=== PATIENT | female | born 1930 | race Caucasian/White ===

== ENCOUNTER 2018-03-30 18:08 | Inpatient (IN) | payer MEDICARE, OTHER ==
[~2018-03-30] VITALS: Ht 152.4 cm; Wt 44.0 kg
[~2018-03-30 18:08] MED LIST: ARMOUR THYROID60 MG PO; FLONASE INH; MAXZIDE 37.5 M1 EACH PO; MICARDIS40 MG PO; ZINC SULFATE220 MG PO
[2018-03-30 19:04] LABS: BASOPHILS % 0.3 % (0.0-1.0); EOSINOPHILS # (AUTO) 0.1 (0.0-0.4); EOSINOPHILS % 1.5 % (0.0-6.0); HEMOGLOBIN 10.8 g/dL (12.0-16.0); MEAN CORPUSCULAR HEMOGLOBIN 27.8 pg (28-32); MEAN CORPUSCULAR HGB CONC 31.8 g/dL (31-35); MEAN CORPUSCULAR VOLUME 87.6 fL (81-99); MONOCYTES # (AUTO) 0.9 (0.2-0.8); MONOCYTES % 9.4 % (4.4-11.3); NEUTROPHILS # (AUTO) 6.5 (2.1-6.9); NEUTROPHILS % 67.5 % (38.7-80.0); PLATELET COUNT 384 x10e3/uL (140-360); RED BLOOD COUNT 3.88 x10e6/uL (3.6-5.1)
[2018-03-30 19:20] LABS: ANION GAP 15.4 mmol/L (8-16); CALCIUM 9.7 mg/dL (8.4-10.2); CREATININE, SERUM 1.53 mg/dL (0.57-1.11); POTASSIUM 3.4 mmol/L (3.5-5.1)
[2018-03-30 19:38] LABS: CREATINE KINASE 27 IU/L (29-168)
[2018-03-30] MEDS ORDERED: AZITHROMYCIN 500MG/NS 250 ML 250 ML IV STA (19:41)
[2018-03-30] MEDS ORDERED: SODIUM CHLORIDE 0.9% 1000ML 1,000 ML IV ONE (19:45)
[2018-03-30] MEDS ORDERED: CEFTRIAXONE SOD 1 GM VIAL IV ONE (19:45)
[2018-03-30] MEDS ORDERED: ALBUTEROL/IPRATROPIUM 3 ML NEB NEB ONE (19:45)
--- NOTE | 2018-03-30 19:48 | Diagnostic Imaging Report ---
EXAMINATION: CHEST SINGLE (PORTABLE) INDICATION: \S\HYPOXIA \[id number] \S\[id number] COMPARISON: None FINDINGS: AP view TUBES and LINES: None. LUNGS: Lungs are well inflated. Central peribronchovascular thickening/cuffing. Bilateral airspace opacities, left greater than right. PLEURA: No pleural effusion or pneumothorax. HEART AND MEDIASTINUM: The cardiac silhouette is enlarged. BONES AND SOFT TISSUES: No acute osseous lesion. Soft tissues are unremarkable. UPPER ABDOMEN: No free air under the diaphragm. IMPRESSION: Central peribronchovascular thickening/cuffing. Bilateral airspace opacities, left greater than right, representing edema and/or pneumonia. Underlying nodules cannot be excluded. Signed by: Dr. Simon Muniz MD on 03/30/2018 7:45 PM
[2018-03-30] MEDS ORDERED: AZITHROMYCIN 500MG/SOD CHL 0.9% 250ML BAG IV SCH (20:45)
[2018-03-30] MEDS ORDERED: ACETAMINOPHEN 325 MG TAB PO PRN (20:45)
[2018-03-30] MEDS ORDERED: ONDANSETRON HCL 4 MG ORAL DISINTEGRATING TAB PO PRN (20:45)
[2018-03-30] MEDS: KCL 20MEQ/.9 SOD CHL 1,000 ML IV ONE ×2 (20:48→21:30)
[2018-03-30] MEDS ORDERED: METOPROLOL TART50 MG PO (21:26)
[2018-03-30] MEDS ORDERED: NORVASC5 MG PO (21:26)
[2018-03-30 21:40] LABS: BILIRUBIN,URINE NEGATIVE (NEGATIVE); CLARITY,URINE SL CLOUDY (CLEAR); COLOR,URINE STRAW (YELLOW); KETONES,URINE NEGATIVE (NEGATIVE); LEUKOCYTE ESTERASE ,URINE TRACE (NEGATIVE); NITRITE,URINE NEGATIVE (NEGATIVE); PROTEIN,URINE DIPSTICK 1+ (NEGATIVE); URINE UROBILINOGEN 0.2 mg/dL (0.2 - 1)
[2018-03-30 21:48] LABS: BACTERIA,URINE MANY /HPF; EPITHELIAL CELLS,URINE RARE /LPF
[2018-03-30] MEDS ORDERED: METOPROLOL TARTRATE INJ 1 MG/ML VIAL IV ONE (22:15)
[2018-03-30] MEDS: ALBUTEROL SULF 0.083% NEB SOLN 3 ML NEB NEB SCH (22:25)
[2018-03-30] MEDS: IPRATROPIUM BROMIDE 0.02% 2.5 ML NEB NEB SCH (22:25)
[2018-03-31] MEDS: ALBUTEROL SULF 0.083% NEB SOLN 3 ML NEB NEB SCH ×6 (03:05→23:00)
[2018-03-31 04:20] LABS: CREATINE KINASE 22 IU/L (29-168)
[2018-03-31 05:33] LABS: BASOPHILS % 0.1 % (0.0-1.0); EOSINOPHILS # (AUTO) 0.3 (0.0-0.4); EOSINOPHILS % 3.2 % (0.0-6.0); HEMATOCRIT 30.2 % (34.2-44.1); HEMOGLOBIN 9.2 g/dL (12.0-16.0); LYMPHOCYTES # (AUTO) 1.4 (1.0-3.2); LYMPHOCYTES % 17.9 % (18.0-39.1); MEAN CORPUSCULAR HEMOGLOBIN 27.6 pg (28-32); MEAN CORPUSCULAR HGB CONC 30.5 g/dL (31-35); MEAN CORPUSCULAR VOLUME 90.7 fL (81-99); MONOCYTES # (AUTO) 0.8 (0.2-0.8); NEUTROPHILS # (AUTO) 5.3 (2.1-6.9); NEUTROPHILS % 68.3 % (38.7-80.0); PLATELET COUNT 324 x10e3/uL (140-360); RED BLOOD COUNT 3.33 x10e6/uL (3.6-5.1); RED CELL DISTRIBUTION WIDTH 13.1 % (11.7-14.4)
[2018-03-31 06:01] LABS: ALBUMIN 2.1 g/dL (3.5-5.0); ALBUMIN/GLOBULIN RATIO 0.5 (0.8-2.0); ANION GAP 13.3 mmol/L (8-16); CALCIUM 8.4 mg/dL (8.4-10.2); CREATININE, SERUM 1.37 mg/dL (0.57-1.11); POTASSIUM 3.3 mmol/L (3.5-5.1)
[2018-03-31] MEDS: IPRATROPIUM BROMIDE 0.02% 2.5 ML NEB NEB SCH ×3 (07:00→19:00)
[2018-03-31 10:14] LABS: CREATINE KINASE 21 IU/L (29-168)
[2018-03-31 12:41] VITALS: BP 133/63
[2018-03-31 15:44] VITALS: BP 147/69
[2018-03-31 20:00] VITALS: BP 150/67
[2018-03-31] MEDS ORDERED: SODIUM CHLORIDE 0.9% 250ML 250 ML ONE (20:32)
[2018-03-31] MEDS: CEFTRIAXONE SOD 1 GM VIAL IV SCH (21:14)
[2018-03-31] MEDS: AZITHROMYCIN 500MG/NS 250 ML 250 ML IV SCH (21:14)
[2018-03-31 22:33] VITALS: BP 150/67
[2018-04-01] VITALS (7 sets, daily range): BP systolic 133–178; BP diastolic 72–83
[2018-04-01] MEDS: IPRATROPIUM BROMIDE 0.02% 2.5 ML NEB NEB SCH ×2 (01:00→06:51)
[2018-04-01] MEDS: ALBUTEROL SULF 0.083% NEB SOLN 3 ML NEB NEB SCH ×2 (03:00→06:50)
[2018-04-01] MEDS ORDERED: elavil PO (07:25)
[2018-04-01] MEDS ORDERED: FERROUS SULFAT324 MG PO (07:25)
[2018-04-01] MEDS ORDERED: POTASSIUM CHLORIDE 20 MEQ TAB CR PO NR (10:45)
[2018-04-01] MEDS: DEXTROSE 5%/0.45% SOD CHL 1,000 ML IV SCH ×2 (10:45→21:30)
[2018-04-01] MEDS: LEVALBUTEROL HCL SOLN NEBU 0.63 MG/3 ML NEB INH SCH ×2 (13:00→19:30)
[2018-04-01] MEDS: METOPROLOL TARTRATE 50 MG TAB PO SCH (16:28)
[2018-04-01] MEDS ORDERED: METOPROLOL TARTRATE 50 MG TAB PO SCH (17:00)
--- NOTE | 2018-04-01 18:18 | Diagnostic Imaging Report ---
PROCEDURE: CT scan of the chest WITH intravenous contrast, using standard protocol. TECHNIQUE: The chest was scanned utilizing a multidetector helical scanner from the lung apex through the level of the adrenal glands after the IV administration of 100 cc of Isovue 370. Coronal and sagittal multiplanar reformations were obtained. DLP: 356.6 mGy-cm COMPARISON: Chest radiograph 03/30/2018 INDICATIONS: PNEUMONIA FINDINGS: Lines/tubes: None. Lungs and Airways: Moderate diffuse centrilobular emphysematous changes. Smooth interlobular septal thickening noted. Additional scattered tree-in-bud opacities, 2-3 mm pulmonary nodules, and areas of mucus plugging with bronchial wall thickening. Lower lobe atelectasis secondary to adjacent effusions. Pleura: Small pleural effusions. No pneumothorax. Heart and mediastinum: The thyroid gland is normal. Borderline enlarged upper right paratracheal node (series 2 image 21). Enlarged subcarinal 1.9 cm node (series 2 image 55) and enlarged hilar lymph nodes measuring 1.4 cm on the right and 1.1 cm on the left. The heart and pericardium are within normal limits. Main pulmonary artery is enlarged measuring 3.2 cm in diameter. Diffuse atherosclerotic disease. A large amount of non-calcified plaques in the suprarenal abdominal aorta. 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 Abdomen: Indeterminate left adrenal 1.2 cm nodule and right adrenal 1.1 cm nodule. Right hepatic cysts measuring up to 1 cm. Additional small hyperdensities in the left hepatic lobe measuring up to 5 mm are too small to characterize. Small hiatal hernia. Bones: Degenerative changes of the spine. No acute or aggressive osseous lesions. IMPRESSION: 1. No evidence of consolidative pneumonia. 2. Emphysematous changes. 3. Bronchial wall thickening and mucus plugging with tree-in-bud opacities and scattered nodules may reflect bronchitis with possible superimposed atypical infection. 4. Small bilateral pleural effusions with mild interstitial edema. 5. Mediastinal and hilar lymphadenopathy, nonspecific. Differentials include metastatic disease, reactive or inflammatory etiologies, or lymphoproliferative disorder. 6. Indeterminate bilateral adrenal nodules which can be further evaluated with CT abdomen without and with contrast (adrenal mass protocol). Dictated by: Hiren Norton M.D. on 04/01/2018 at 18:22 Electronically approved by: Hiren Norton M.D. on 04/01/2018 at 18:22
[2018-04-01] MEDS ORDERED: SODIUM CHLORIDE 0.9% 50ML 50 ML ONE (19:46)
[2018-04-01] MEDS ORDERED: IOPAMIDOL 370 MG/ML 200 ML INFUS..BTL INJ ONE (19:46)
[2018-04-01] MEDS ORDERED: ELAVIL 50 MG PO SCH (21:00)
[2018-04-01] MEDS: AZITHROMYCIN 500MG/NS 250 ML 250 ML IV SCH (21:30)
[2018-04-01] MEDS: CEFTRIAXONE SOD 1 GM VIAL IV SCH (21:30)
[2018-04-01] MEDS: AMITRIPTYLINE HCL 25 MG TAB PO SCH (21:33)
[2018-04-01] MEDS: TELMISARTAN 40 MG TAB PO SCH (21:33)
[2018-04-01] MEDS: FERROUS SULFATE 325 MG TAB PO SCH (21:33)
[2018-04-01] MEDS: AMLODIPINE BESYLATE 5 MG TAB PO SCH (21:33)
[2018-04-02] VITALS (7 sets, daily range): BP systolic 154–189; BP diastolic 74–84
[2018-04-02] MEDS: DEXTROSE 5%/0.45% SOD CHL 1,000 ML IV SCH ×2 (06:30→16:07)
[2018-04-02] MEDS: THYROID 60 MG TAB PO SCH (06:31)
[2018-04-02] MEDS: LEVALBUTEROL HCL SOLN NEBU 0.63 MG/3 ML NEB INH SCH ×5 (06:55→19:30)
[2018-04-02] MEDS: TELMISARTAN 40 MG TAB PO SCH ×2 (08:59→21:10)
[2018-04-02] MEDS: METOPROLOL TARTRATE 50 MG TAB PO SCH ×2 (08:59→16:36)
[2018-04-02] MEDS: ZINC SULFATE 220 MG CAP PO SCH (09:00)
[2018-04-02] MEDS: CEFTRIAXONE SOD 1 GM VIAL IV SCH (21:10)
[2018-04-02] MEDS: FERROUS SULFATE 325 MG TAB PO SCH (21:10)
[2018-04-02] MEDS: AZITHROMYCIN 500MG/NS 250 ML 250 ML IV SCH (21:10)
[2018-04-02] MEDS: AMITRIPTYLINE HCL 25 MG TAB PO SCH (21:10)
[2018-04-02] MEDS: AMLODIPINE BESYLATE 5 MG TAB PO SCH (21:10)
[2018-04-03] VITALS (7 sets, daily range): BP systolic 154–184; BP diastolic 70–90
[2018-04-03] MEDS: THYROID 60 MG TAB PO SCH (05:20)
[2018-04-03] MEDS: LEVALBUTEROL HCL SOLN NEBU 0.63 MG/3 ML NEB INH SCH ×4 (07:15→18:45)
[2018-04-03] MEDS: METOPROLOL TARTRATE 50 MG TAB PO SCH ×2 (09:19→17:25)
[2018-04-03] MEDS: TELMISARTAN 40 MG TAB PO SCH ×2 (09:19→20:02)
[2018-04-03] MEDS: ZINC SULFATE 220 MG CAP PO SCH (09:19)
[2018-04-03] MEDS: DEXTROSE 5% 1,000 ML IV SCH (15:54)
[2018-04-03] MEDS: CEFTRIAXONE SOD 1 GM VIAL IV SCH (20:00)
[2018-04-03] MEDS: FERROUS SULFATE 325 MG TAB PO SCH (20:02)
[2018-04-03] MEDS: AMITRIPTYLINE HCL 25 MG TAB PO SCH (20:02)
[2018-04-03] MEDS: AZITHROMYCIN 500MG/NS 250 ML 250 ML IV SCH (20:02)
[2018-04-03] MEDS: AMLODIPINE BESYLATE 5 MG TAB PO SCH (20:02)
[2018-04-04] VITALS: BP 138/89
[2018-04-04 04:00] VITALS: BP 182/97
[2018-04-04] MEDS: DEXTROSE 5% 1,000 ML IV SCH (05:20)
[2018-04-04] MEDS: THYROID 60 MG TAB PO SCH (05:20)
[2018-04-04 07:12] VITALS: BP 173/79
[2018-04-04] MEDS: LEVALBUTEROL HCL SOLN NEBU 0.63 MG/3 ML NEB INH SCH ×2 (07:32)
[2018-04-04 07:39] VITALS: BP 173/79
== END 2018-04-04 08:20 | DRG 190 ==
LOC: ER 18:08 → ERHOLD 21:00 → MED/SURG3 03-31 12:41
DX: J44.0 Chronic obstructive pulmonary disease with (acute) lower respiratory infection (principal); J18.9 Pneumonia, unspecified organism; J44.1 Chronic obstructive pulmonary disease with (acute) exacerbation; I10 Essential (primary) hypertension; E03.9 Hypothyroidism, unspecified; D64.9 Anemia, unspecified; R09.02 Hypoxemia
CPT/HCPCS: 36415; 71045; 71260; 80048; 80053; 81001; 82550; 82553; 83605; 83880; 84484; 85025; 87040; 93005; 94640; 99285; J0456; J0696; J7030; J7050; J7070; Q9967